=== PATIENT | male | born 1940 | race Caucasian/White ===

== ENCOUNTER 2022-06-19 15:03 | Observation (INO) | payer OTHER, BC ==
--- OUTSIDE RECORDS SUMMARY | 2022-06-19 15:08 | XMS REPORT | Continuity of Care Document ---
:1940 Author Organization [facility] t Address [address] [place] [address] [address]. [address] [place] [address] Care Team Providers Name Role Phone REBEKA CORMIER Primary Care Physician Unavailable EDER PERERA Attending Clinician Unavailable Boris Bustos Attending Clinician MARK KING Attending Clinician Unavailable Nurse, Adc Pob Immunization Attending Clinician Unavailable Mark King DO Attending Clinician Pob, Adc Lab Main Attending Clinician Unavailable Tad Beck MD Attending Clinician TAD BECK Attending Clinician Unavailable Doctor Unassigned, [place] Attending Clinician Unavailable Unknown, Attending Attending Clinician Unavailable Lab, Adc Fam Pob I Attending Clinician Unavailable Dalila Silva MD Attending Clinician DALILA SILVA Attending Clinician Unavailable Radiology Attending Clinician Unavailable RADIOLOGY Attending Clinician Unavailable EDER PERERA Admitting Clinician Unavailable Payers Payer Name Policy Type Policy Number Effective Date Expiration Date S [facility] MEDICARE PART A \T\ [id number] 2007 B 00:00:00 [employer] TRADITIONAL [id number] 2013 00:00:00 Problems Condition Condition Condition Status Onset Resolution Last Treating Co mments Source Name Details Category Date Date Treatment Clinician Date No known No known Disease Unive rs active active ity of problems problems [facility] Diabetes Diabetes Problem Active 2022-05-27 Memoria mellitus mellitus 04:51:21 l (disorder) (disorder) He rmann Active Problem 05/27/2022 [facility] Hyperlipid Hyperlipi Problem Active 2022-05-27 Memoria emia demia 04:51:21 l (disorder) (disorder) He rmann Active Problem 05/27/2022 [facility] Hypertensi Hypertens Problem Active 2022-05-27 Memoria ve kimberly 04:51:21 l disorder, disorder, Herm skyler systemic systemic arterial arterial (disorder) (disorder) Active Problem 05/27/2022 [facility] Hypothyroi Problem Active 2022-05-27 M emoria dism Hypothyroi 04:51:21 l (disorder) dism Adis n (disorder) Active Problem 05/27/2022 [facility] Impaired Impaired Problem Active 2022-05-27 Memoria cognition cognition 04:51:21 l (finding) (finding) Herm skyler Active Problem 05/27/2022 [facility] 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 He rmann n n (disorder) (disorder) Active Problem 05/27/2022 [facility] Dementia Dementia Problem Active 2022-05-27 Memoria (disorder) (disorder) 04:51:21 l Active [place] Problem 05/27/2022 [facility] Allergies, Adverse Reactions, Alerts Allergy Allergy Status Severity Reaction(s) Onset Inactive Treating Comm ents Source Name Type Date Date Clinician NO KNOWN Drug Active Univers ALLERGIE Class [facility] [place] [facility] Social History Social Habit Start Date Stop Date Quantity Comments Source Exposure to Not sure University of SARS-CoV-2 [place] [facility] (event) Branch History [facility] University o f Alcohol Frequency [place] [facility] History [facility] University o f Alcohol Std [place] [facility] Drinks Branch History [facility] University o f Alcohol Binge [place] [facility] Social History 2021-01-13 2021-01-13 Ofe Luis will 21:22:00 21:22:00 Alcohol intake 2018-03-01 2018-03-01 Current drinker Unive rsity of 00:00:00 00:00:00 of alcohol [place] [facility] (finding) Branch Tobacco use and 2018-02-26 2018-02-26 Never used Universit y of exposure 00:00:00 00:00:00 [facility] Alcohol Comment 2018-02-26 2018-02-26 Rare occasions Unive rsity of 00:00:00 00:00:00 [facility] Sex Assigned At [address] 1940 [facility] y of 00:00:00 00:00:00 [facility] Smoking Status Start Date Stop Date Source Unknown if ever smoked [facility] Never smoker [facility] Medications Ordered Filled Start Stop Current Ordering Indication Dosage Frequency Signature Comments Components Source Medication Medication Date Date Medication? 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, Weight Donepezil 0 Yes 10 mg = 1 Mem oria hydrochlori 7-14 tab, PO, l de 10 MG 19:47: Bedtime, # Her grimes Oral Tablet 00 30 tab, 3 [Aricept] Refill(s), Pharmacy: [facility] 256, 180.34, cm, 04/21/21 14:11:00 CDT, Height, 96.364, kg, 04/21/21 14:11:00 CDT, Weight Donepezil 2020-0 Yes 10 mg = 1 Mem oria hydrochlori 7-14 tab, PO, l de 10 MG 19:47: Bedtime, # Her grimes Oral Tablet 00 30 tab, 3 [Aricept] Refill(s), Pharmacy: [facility] 256, 180.34, cm, 04/21/21 14:11:00 CDT, Height, 96.364, kg, 04/21/21 14:11:00 CDT, Weight Donepezil 2020-0 Yes 5 mg = 1 Surjit jayda hydrochlori 5-12 tab, PO, l de 5 MG 20:51: Bedtime, # Herm skyler Oral Tablet 00 30 tab, 3 [Aricept] Refill(s), Pharmacy: [facility] 256, 180.34, cm, 02/17/21 15:20:00 CDT, Height, 95.909, kg, 02/17/21 15:20:00 CDT, Weight Donepezil Yes 5 mg = 1 Surjit jayda hydrochlori 5-12 tab, PO, l de 5 MG 20:51: Bedtime, # Herm skyler Oral Tablet 00 30 tab, 3 [Aricept] Refill(s), Pharmacy: [facility] 256, 180.34, cm, 02/17/21 15:20:00 CDT, Height, 95.909, kg, 02/17/21 15:20:00 CDT, Weight Losartan Yes 50 mg, PO, Mem oria 4-07 Daily, 0 l 20:17: Refill(s) Losartan Yes 50 mg, PO, Mem oria 4-07 Daily, 0 l 20:17: Refill(s) Acetaminoph Yes 30 mg, PO, Memoria en 4-07 PRN, 0 l 20:15: Refill(s) Acetaminoph 0 Yes 30 mg, PO, Memoria en 4-07 PRN, 0 l 20:15: Refill(s) Simvastatin 0 Yes 40 mg, PO, Memoria 4-07 Daily, 0 l 20:14: Refill(s) Metformin 0 Yes 500 mg, Memor ia 4-07 PO, Daily, l 20:14: 0 Refill(s) Clonazepam 0 Yes 5 mg, PO, Me moria 4-07 Bedtime, 0 l 20:14: Refill(s) Simvastatin 0 Yes 40 mg, PO, Memoria 4-07 Daily, 0 l 20:14: Refill(s) Metformin 0 Yes 500 mg, Memor ia 4-07 PO, Daily, l 20:14: 0 Refill(s) Clonazepam 0 Yes 5 mg, PO, Me moria 4-07 Bedtime, 0 l 20:14: Refill(s) [place] 0 Yes 40 mg, PO, Memor ia Thyroid 4-07 Daily, 0 l 20:13: Refill(s) [place] Yes 40 mg, PO, Memor ia Thyroid 4-07 Daily, 0 l 20:13: Refill(s) Bisoprolol Yes 2.5 mg, Surjit jayda 4-07 PO, Daily, l 20:12: 0 R[place] 00 Refill(s) Bisoprolol Yes 2.5 mg, Surjit jayda 4-07 PO, Daily, l 20:12: 0 [place] 00 Refill(s) losartan 50 Yes 50mg Take 50 mg Univers mg tablet 5-23 by mouth ity of 18:14: daily. [address] Branch bisoprolol- Yes 1{tbl} Take 1 Un sharla hydrochloro 5-23 tablet by ity of thiazide 18:14: mouth [place] 2.5-6.25 mg 06 daily. Medica l per tablet Branch metFORMIN Yes 500mg Take 500 Uni vers 500 mg 5-23 mg by ity of tablet 18:14: mouth 2 06 (two) Medical times Branch daily with meals. simvastatin Yes 40mg Take 40 mg Univers 40 mg 5-23 by mouth ity of tablet 18:14: at [place] 06 bedtime. Medical Branch tamsulosin Yes .4mg Take 0.4 Uni vers 0.4 mg 24 5-23 mg by ity of hr capsule 18:14: [facility] Branch daily. Jones-3-DHA Yes 1{capsu Take 1 U nivers -EPA-Fish 5-23 le} capsule by ity of Oil (FISH 18:14: mouth 2 [place] OIL) 1,000 06 (two) Medical mg (120 times Branch mg-180 mg) daily. Cap ascorbic Yes 1000mg Take 1,000 U nivers acid, 5-23 mg by ity of vitamin C, 18:14: mouth [place] (VITAMIN C[place] 06 (two) Medical 500 mg times Branch tablet daily. losartan 50 Yes 50mg Take 50 mg Univers mg tablet 5-23 by mouth ity of 18:14: daily. [address] Branch bisoprolol- Yes 1{tbl} Take 1 Un sharla hydrochloro 5-23 tablet by ity of thiazide 18:14: mouth [place] 2.5-6.25 mg 06 daily. Medica l per tablet Branch metFORMIN 0 Yes 500mg Take 500 Uni vers 500 mg 5-23 mg by ity of tablet 18:14: mouth 2 (two) Medical times Branch daily with meals. simvastatin 2018-0 Yes 40mg Take 40 mg Univers 40 mg 5-23 by mouth ity of tablet 18:14: at [place] [address] bedtime. Medical Branch tamsulosin 2018-0 Yes .4mg Take 0.4 Uni vers 0.4 mg 24 5-23 mg by ity of hr capsule 18:14: mouth [place] 06 (two[place] Medical times Branch daily. Jones-3-DHA Yes 1{capsu Take 1 U nivers -EPA-Fish 5-23 le} capsule by ity of Oil (FISH 18:14: mouth 2 [place] OIL) 1,000 06 (two) Medical mg (120 times Branch mg-180 mg) daily. Cap ascorbic 20180 Yes 1000mg Take 1,000 U nivers acid, 5-23 mg by ity of vitamin C, 18:14: mouth 2 [place] (VITAMIN C) (two) Medical 500 mg times Branch tablet daily. losartan 50 0 Yes 50mg Take 50 mg Univers mg tablet 5-23 by mouth ity of 18:14: daily. Medical Branch bisoprolol- 2017-0 Yes 1{tbl} Take 1 Un sharla hydrochloro 5-23 tablet by ity of thiazide 18:14: mouth [place] 2.5-6.25 mg 06 daily. Medica l per tablet Branch metFORMIN 0 Yes 500mg Take 500 Uni vers 500 mg 5-23 mg by ity of tablet 18:14: mouth 2 (two) Medical times Branch daily with meals. simvastatin 2018-0 Yes 40mg Take 40 mg Univers 40 mg 5-23 by mouth ity of tablet 18:14: at [place] [address] bedtime. Medical Branch tamsulosin 2017-0 Yes .4mg Take 0.4 Uni vers 0.4 mg 24 5-23 mg by ity of hr capsule 18:14: mouth 2 [place] 06 (two) Medical times Branch daily. Jones-3-DHA 2018-0 Yes 1{capsu Take 1 U nivers -EPA-Fish 5-23 le} capsule by ity of Oil (FISH 18:14: mouth 2 [place] OIL) 1,000 06 (two) Medical mg (120 times Branch mg-180 mg) daily. Cap ascorbic Yes 1000mg Take 1,000 U nivers acid, 5-23 mg by ity of vitamin C, 18:14: mouth 2 [place] (VITAMIN C) 06 (two) Medical 500 mg times Branch tablet daily. losartan 50 Yes 50mg Take 50 mg Univers mg tablet 5-23 by mouth ity of 18:14: daily. Medical Branch bisoprolol- Yes 1{tbl} Take 1 Un sharla hydrochloro 5-23 tablet by ity of thiazide 18:14: mouth [place] 2.5-6.25 mg 06 daily. Medica l per tablet Branch metFORMIN Yes 500mg Take 500 Uni vers 500 mg 5-23 mg by ity of tablet 18:14: mouth 2 (two) Medical times Branch daily with meals. simvastatin Yes 40mg Take 40 mg Univers 40 mg 5-23 by mouth ity of tablet 18:14: at [place] [address] bedtime. Medical Branch tamsulosin Yes .4mg Take 0.4 Uni vers 0.4 mg 24 5-23 mg by ity of hr capsule 18:14: mouth 2 [place] 06 (two) Medical times Branch daily. Jones-3-DHA Yes 1{capsu Take 1 U nivers -EPA-Fish 5-23 le} capsule by ity of Oil (FISH 18:14: mouth 2 [place] OIL) 1,000 06 (two) Medical mg (120 times Branch mg-180 mg) daily. Cap ascorbic Yes 1000mg Take 1,000 U nivers acid, 5-23 mg by ity of vitamin C, 18:14: mouth 2 [place] (VITAMIN C) 06 (two) Medical 500 mg times Branch tablet daily. losartan 50 0 Yes 50mg Take 50 mg Univers mg tablet 5-23 by mouth ity of 18:14: daily. Medical Branch bisoprolol- Yes 1{tbl} Take 1 Un sharla hydrochloro 5-23 tablet by ity of thiazide 18:14: mouth [place] 2.5-6.25 mg 06 daily. Medica l per tablet Branch metFORMIN 2018-0 Yes 500mg Take 500 Uni vers 500 mg 5-23 mg by ity of tablet 18:14: mouth 2 (two) Medical times Branch daily with meals. simvastatin 2018-0 Yes 40mg Take 40 mg Univers 40 mg 5-23 by mouth ity of tablet 18:14: at [place] [address] bedtime. Medical Branch tamsulosin 2018-0 Yes .4mg Take 0.4 Uni vers 0.4 mg 24 5-23 mg by ity of hr capsule 18:14: mouth 2 [place] 06 (two) Medical times Branch daily. Jones-3-DHA 2018- Yes 1{capsu Take 1 U nivers -EPA-Fish 5-23 le} capsule by ity of Oil (FISH 18:14: mouth 2 [place] OIL) 1,000 06 (two) Medical mg (120 times Branch mg-180 mg) daily. Cap ascorbic 2018-0 Yes 1000mg Take 1,000 U nivers acid, 5-23 mg by ity of vitamin C, 18:14: mouth 2 [place] (VITAMIN C) (two) Medical 500 mg times Branch tablet daily. losartan 50 2018-0 Yes 50mg Take 50 mg Univers mg tablet 5-23 by mouth ity of 18:14: daily. Medical Branch bisoprolol- 2018-0 Yes 1{tbl} Take 1 Un sharla hydrochloro 5-23 tablet by ity of thiazide 18:14: mouth [place] 2.5-6.25 mg 06 daily. Medica l per tablet Branch metFORMIN 2018-0 Yes 500mg Take 500 Uni vers 500 mg 5-23 mg by ity of tablet 18:14: mouth 2 (two) Medical times Branch daily with meals. simvastatin 2018-0 Yes 40mg Take 40 mg Univers 40 mg 5-23 by mouth ity of tablet 18:14: at [place] [address] bedtime. Medical Branch tamsulosin 2018-0 Yes .4mg Take 0.4 Uni vers 0.4 mg 24 5-23 mg by ity of hr capsule 18:14: mouth 2 [place] 06 (two) Medical times Branch daily. Jones-3-DHA 2018-0 Yes 1{capsu Take 1 U nivers -EPA-Fish 5-23 le} capsule by ity of Oil (FISH 18:14: mouth 2 [place] OIL) 1,000 06 (two) Medical mg (120 times Branch mg-180 mg) daily. Cap ascorbic 2017-0 Yes 1000mg Take 1,000 U nivers acid, 5-23 mg by ity of vitamin C, 18:14: mouth 2 [place] (VITAMIN C) 06 (two) Medical 500 mg times Branch tablet daily. losartan 50 2017- Yes 50mg Take 50 mg Univers mg tablet 5-23 by mouth ity of 13:14: daily. [place] 06 Medical Branch bisoprolol- 2018-0 Yes 1{tbl} Take 1 Un sharla hydrochloro 5-23 tablet by ity of thiazide 13:14: mouth [place] 2.5-6.25 mg 06 daily. Medica l per tablet Branch metFORMIN 2017-0 Yes 500mg Take 500 Uni vers 500 mg 5-23 mg by ity of tablet 13:14: mouth 2 [place] 06 (two) Medical times Branch daily with meals. simvastatin 2017- Yes 40mg Take 40 mg Univers 40 mg 5-23 by mouth ity of tablet 13:14: at [place] 06 bedtime. Medical Branch tamsulosin 2018-0 Yes .4mg Take 0.4 Uni vers 0.4 mg 24 5-23 mg by ity of hr capsule 13:14: mouth 2 [place] 06 (two) Medical times Branch daily. Jones-3-DHA 2017- Yes 1{capsu Take 1 U nivers -EPA-Fish 5-23 le} capsule by ity of Oil (FISH 13:14: mouth 2 [place] OIL) 1,000 06 (two) Medical mg (120 times Branch mg-180 mg) daily. Cap ascorbic Yes 1000mg Take 1,000 U nivers acid, 5-23 mg by ity of vitamin C, 13:14: mouth 2 [place] (VITAMIN C) 06 (two) Medical 500 mg times Branch tablet daily. Immunizations Ordered Filled Immunization Date Status Comments [facility] e Immunization Name Name SARS-COV-2 COVID-19 2021-07-13 Completed Unive rsity of PFIZER VACCINE 00:00:00 [facility] SARS-COV-2 COVID-19 2020-12-21 Completed Unive rsity of PFIZER VACCINE 00:00:00 [facility] SARS-COV-2 COVID-19 2020-12-21 Completed Unive rsity of PFIZER VACCINE 00:00:[address] [facility] Branch SARS-COV-2 COVID-19 2020-12-21 Completed Unive rsity of PFIZER VACCINE 00:00:00 [place] [facility] Branch SARS-COV-2 COVID-19 2020-12-21 Completed Unive rsity of PFIZER VACCINE 00:00:[address] [facility] Branch SARS-COV-2 COVID-19 2020-12-21 Completed Unive rsity of PFIZER VACCINE 00:00:[address] [facility] Branch SARS-COV-2 COVID-19 2020-12-21 Completed Unive rsity of PFIZER VACCINE 00:00:[address] [facility] Branch SARS-COV-2 COVID-19 2020-12-21 Completed Unive rsity of PFIZER VACCINE 00:00:[address] [facility] Branch [id number] 2020-12-21 Completed Memor bk Lawson [id number] 00:00:00 ER<sup>1</sup> [id number] 2020-12-21 Completed Memor bk [id number] 00:00:00 ER<sup>1</sup> SARS-COV-2 COVID-19 2020-12-21 Completed Unive rsity of PFIZER VACCINE 00:00:[address] [facility] Branch SARS-COV-2 COVID-19 2020-11-30 Completed Unive rsity of PFIZER VACCINE 00:00:[address] [facility] Branch SARS-COV-2 COVID-19 2020-11-30 Completed Unive rsity of PFIZER VACCINE 00:00:[address] [facility] Branch SARS-COV-2 COVID-19 2020-11-30 Completed Unive rsity of PFIZER VACCINE 00:00:[address] [facility] Branch SARS-COV-2 COVID-19 2020-11-30 Completed Unive rsity of PFIZER VACCINE 00:00:[address] [facility] Branch SARS-COV-2 COVID-19 2020-11-30 Completed Unive rsity of PFIZER VACCINE 00:00:00 [facility] SARS-COV-2 COVID-19 2020-11-30 Completed Unive rsity of PFIZER VACCINE 00:00:00 [facility] SARS-COV-2 COVID-19 2020-11-30 Completed Unive rsity of PFIZER VACCINE 00:00:00 [facility] SARS-COV-2 COVID-19 2020-11-30 Completed Unive rsity of PFIZER VACCINE 00:00:00 [facility] Vital Signs Vital Name Observation Time Observation Value Comments Source Systolic (mm Hg) 2022-05-24 18:19:00 Surjit rial [place] Diastolic (mm Hg) 2022-05-24 18:19:00 Mem orial [place] Heart Rate 2022-05-24 18:19:00 [facility] [place] Respitory Rate 2022-05-24 18:19:00 Memori al [place] Height 2022-05-24 18:19:00 177.8 cm [facility] [place] Weight 2022-05-24 18:19:00 Memorial [place] BMI Calculated 2022-05-24 18:19:00 Memori al [place] Systolic (mm Hg) 2021-11-23 19:57:00 Surjit rial [place] Diastolic (mm Hg) 2021-11-23 19:57:00 Mem orial [place] Heart Rate 2021-11-23 19:57:00 [facility] [place] Respitory Rate 2021-11-23 19:57:00 Memori al [place] Height 2021-11-23 19:57:00 177.8 cm [facility] [place] Weight 2021-11-23 19:57:00 [facility] [place] BMI Calculated 2021-11-23 19:57:00 Memori al [place] Systolic (mm Hg) 2021-07-22 16:30:00 Surjit rial [place] Diastolic (mm Hg) 2021-07-22 16:30:00 Mem orial [place] Heart Rate 2021-07-22 16:30:00 [facility] [place] Height 2021-07-22 16:30:00 180.34 cm Memorial [place] Weight 2021-07-22 16:30:00 [facility] [place] BMI Calculated 2021-07-22 16:30:00 Memori al [place] Systolic (mm Hg) 2021-04-21 19:11:00 Surjit rial [place] Diastolic (mm Hg) 2021-04-21 19:11:00 Mem orial [place] Heart Rate 2021-04-21 19:11:00 [facility] [place] Respitory Rate 2021-04-21 19:11:00 Memori al [place] Height 2021-04-21 19:11:00 180.34 cm [facility] [place] Weight 2021-04-21 19:11:00 [facility] [place] BMI Calculated 2021-04-21 19:11:00 Memori al [place] Systolic (mm Hg) 2021-02-17 20:02:00 Surjit rial [place] Diastolic (mm Hg) 2021-02-17 20:02:00 Mem orial [place] Heart Rate 2021-02-17 20:02:00 [facility] [place] Respitory Rate 2021-02-17 20:02:00 Memori al [place] Height 2021-02-17 20:02:00 180.34 cm Memorial [place] Weight 2021-02-17 20:02:00 [facility] [place] BMI Calculated 2021-02-17 20:02:00 Memori al [place] Systolic (mm Hg) 2021-01-13 20:11:00 Surjit rial [place] Diastolic (mm Hg) 2021-01-13 20:11:00 Mem orial [place] Heart Rate 2021-01-13 20:11:00 Memorial [place] Respitory Rate 2021-01-13 20:11:00 Memori al [place] Height 2021-01-13 20:11:00 180.34 cm [facility] [place] Weight 2021-01-13 20:11:00 [facility] [place] BMI Calculated 2021-01-13 20:11:00 Memori al [place] Procedures Procedure Date / Time Performing Clinician Source Performed SARS-COV-2 COVID-19 2021-07-13 19:55:15 [facility],IM [facility] Branch (PFIZER) CONSENT/REFUSAL FOR 2021-06-03 21:08:38 Doctor Unassigned, [facility] Medical [address] ASSIGNMENT OF BENEFITS 2021-06-03 21:08:19 Doctor Unassigned, No [facility] MR BRAIN WO CONTRAST 2021-01-26 20:45:51 Requisition, Paper [facility] NOTICE OF PRIVACY 2021-01-26 19:45:15 Doctor Unassigned, No [facility] CONSENT/REFUSAL FOR 2021-01-26 19:44:40 Doctor Unassigned, No [facility] DIAGNOSIS AND TREATMENT Name Medical [address] ASSIGNMENT OF BENEFITS 2021-01-26 19:44:11 Doctor Unassigned, No [facility] Name [facility] Colonoscopy [facility] Encounters Start End Encounter Admission Attending Care Care Encounter Source Date/Time Date/Time Type Type Clinicians Facility Department ID 2021-09-29 Outpatient Reji PERERA [facility] OPH [id number] Univers 17:21:34 EDER [facility] 2022-11-24 2022-11-24 Outpatient MHIE MHIE [id number] Memoria 13:00:00 13:00:00 06 l [place] 2022-05-24 2022-05-25 Outpatient nullFlavo MNA [id number] Memoria 18:00:00 04:59:59 r Neurology 05 l [place] 2022-05-24 2022-05-24 Outpatient Juli MHMISCHER MHMISCHER [id number] 13:00:00 23:59:59 Boris 05 Fidel 2022-05-24 2022-05-24 Outpatient MHIE MHIE [id number] Memoria 13:00:00 13:00:00 05 l [place] 2021-11-23 2021-11-24 Outpatient nullFlavo MNA [id number] Memoria 19:45:00 05:59:59 r Neurology 04 l [place] 2021-11-23 2021-11-23 Outpatient FARTUN BustosMISCHER MHMISCHER [id number] 13:45:00 23:59:59 Boris 04 Fidel 2021-11-23 2021-11-23 Outpatient MHIE MHIE [id number] Memoria 13:45:00 13:45:00 04 l [place] 2021-10-12 2021-10-12 Outpatient R [facility] [id number] Univers 09:15:00 09:15:00 [id number] [facility] 2021-10-12 2021-10-12 Outpatient Reji PERERA [facility] [id number] Univers 09:15:00 09:15:00 EDER [facility] 2021-10-04 2021-10-04 Outpatient R [facility] [id number] Univers 15:45:00 15:45:00 [id number] [facility] 2021-10-04 2021-10-04 Outpatient Reji PERERA [facility] [id number] Univers 15:45:00 15:45:00 EDER [facility] 2021-07-22 2021-07-23 Outpatient nullFlavo MNA [id number] Memoria 16:30:00 04:59:59 r Neurology 03 l [place] 2021-07-22 2021-07-22 Outpatient Juli MHMISCHER MHMISCHER [id number] 11:30:00 23:59:59 Boris 03 Fidel 2021-07-22 2021-07-22 [id number] 11:30:00 03 raghav Lawson 2021-07-22 2021-07-22 Outpatient MHIE MHIE [id number] [facility] 11:30:00 11:30:00 03 raghav Lwason 2021-07-13 2021-07-13 Outpatient Reji KING [facility] [id number] Univers 14:50:00 14:50:00 MARK [facility] 2021-07-13 2021-07-13 Imm/Inj Nurse, Adc Pob Immunization [facility] [id number] Univers 14:43:59 14:44:59 Visit Mark King [id number] .10 ity [facility] [id number] Profess[place] [phone] Mn dical nal 421 [facility] 2021-06-03 2021-06-03 Pasting Inspector Pob, Adc Lab Main [facility] [id number] Univers 16:08:50 16:23:50 Visit Tad Beck [id number] [place] [id number] [place] [phone] Mn dical nal 353 [facility] 2021-06-03 2021-06-03 Outpatient Reji BECK [facility] [id number] Univers 16:15:00 16:15:00 TAD [facility] 2021-06-03 2021-06-03 Outpatient R [facility] [id number] Univers 16:15:00 16:15:00 [id number] ity [facility] 2021-06-03 2021-06-03 Orders Doctor CL [id number] Univers 00:00:00 00:00:00 Only Unassigned, JENNY [id number] ity of [place] [facility] [id number] Gamaliel as [phone] [address] 2021-05-06 2021-05-06 Telephone Unknown, [facility] [id number] Univers 00:00:00 00:00:00 Attending Health [id number] ity of [place] [id number] Gamaliel as Professio [phone] Mn dic[address] Office [facility] One 2021-05-05 2021-05-05 Laboratory Lab, Adc Fam Pob I [facility] [id number]. [id number] Univers 13:38:03 13:58:03 Only Dalila Silva [facility] [id number] ity of [place] [id number] Gamaliel as Professio [phone] Mn dical [address] Office [facility] 2021-05-05 2021-05-05 Outpatient R [facility] [id number] Univers 13:40:00 13:40:00 [id number] ity [facility] 2021-05-05 2021-05-05 Outpatient [facility] [id number] Univers 13:40:00 13:40:00 DALILA ity [facility] 2021-04-21 2021-04-22 Outpatient nullFlavo MNA [id number] Memoria 19:00:00 04:59:59 r Neurology 02 l Charis Lawson 2021-04-21 2021-04-22 Outpatient nullFlavo MNA [id number] Memoria 19:00:00 04:59:59 r Neurology 02 l Charis Lawson 2021-04-21 2021-04-[address] [facility] [id number] 14:00:00 23:59:59 Boris 02 Fidel 2021-04-21 2021-04-21 Outpatient MHIE MHIE [id number] Memoria 14:00:00 14:00:00 02 raghav Lawson 2021-02-17 2021-02-18 Outpatient nullFlavo MNA [id number] Memoria 19:30:00 04:59:59 r Neurology 01 l Charis Solisann 2021-02-17 2021-02-18 Outpatient nullFlavo MNA [id number] Memoria 19:30:00 04:59:59 r Neurology 01 l Charis Lawson 2021-02-17 2021-02-17 Outpatient TERESITA Bustos MISCHRONNY [id number] 14:30:00 23:59:59 Boris Fidel 2021-02-17 2021-02-17 Outpatient MHIE MHIE [id number] Memoria 14:30:00 14:30:00 01 raghav [place] 2021-01-26 2021-01-26 [facility] Radiology [facility] [id number] Univers 14:44:16 23:59:00 Encounter [place] [id number] ity [facility] [id number] [facility] [id number] [facility] [address] 2021-01-26 2021-01-26 Outpatient R RADIOLOGY [facility] [id number] Univers 00:00:00 00:00:00 ity of [facility] 2021-01-13 2021-01-14 Outpatient nullFlavo MNA [id number] Memoria 20:00:00 04:59:59 r Neurology 00 l Charis Lawson 2021-01-13 2021-01-14 Outpatient nullFlavo MNA [id number] Memoria 20:00:00 04:59:59 r Neurology 00 l Charis Lawson 2021-01-13 2021-01-13 Outpatient TERESITA BustosMISCHER [id number] 15:00:00 23:59:59 Boris 00 Fidel Results Test Description Test Time Test Comments Results Result Sourc e Comments MR BRAIN WO 2021-01-08 No acute [facility] CONTRAST 0 intracranial [place] [facility] 21:22:38 abnormality. EXAM: Branch MR BRAIN WO CONTRAST HISTORY: Mild cognitive impairment TECHNIQUE: MRI of brain was performed on 1.5 Marcela without intravenouscontrast . COMPARISON: None. FINDINGS: The ventricles and sulci are normal in caliber and configuration. Nohydrocephalus. The basal cisterns are within normal limits. There is no diffusion restriction suggest acute/subacute infarction. Nointracranial hemorrhage, extra-axial collection, mass effect, midlineshift, or herniation. No abnormal signal Blooming on gradient sequences. Prominent bilateral basal ganglia perivascular spaces. Few scattered fociof T2/FLAIR hyperintensity are noted in the bilateral cerebral hemispheres,nonspec ific probably age-related. The T2 signal void of intracranial vessels is within normal limits. No abnormal signal in the paranasal sinuses or mastoid air cells. [facility], Radiant Results Inft User - 01/26/2021 4:23 PM CDTEXAM: MR BRAIN WO CONTRASTHISTORY: Mild cognitive impairmentTECHNIQUE : MRI of brain was performed on 1.5 Marcela without intravenouscontrast .COMPARISON: None.FINDINGS: The ventricles and sulci are normal in caliber and configuration. Nohydrocephalus. The basal cisterns are within normal limits.There is no diffusion restriction suggest acute/subacute infarction. Nointracranial hemorrhage, extra-axial collection, mass effect, midlineshift, or herniation. No abnormal signal Blooming on gradient sequences.Prominent bilateral basal ganglia perivascular spaces. Few scattered fociof T2/FLAIR hyperintensity are noted in the bilateral cerebral hemispheres,nonspec ific probably age-related.The T2 signal void of intracranial vessels is within normal limits. No abnormal signal in the paranasal sinuses or mastoid air cells.IMPRESSIONNo acute intracranial abnormality.
--- NOTE | 2022-06-19 16:13 | RAD REPORT ---
EXAM DESCRIPTION: CT - Head Brain Wo Cont - 06/19/2022 4:01 pm CLINICAL HISTORY: sadf Headache, drowsiness, syncope COMPARISON: No comparisons TECHNIQUE: All CT scans are performed using dose optimization technique as appropriate and may inclu de automated exposure control or mA/KV adjustment according to patient size. FINDINGS: No intracranial hemorrhage, hydrocephalus or extra-axial fluid collection.No areas of brai n edema or evidence of midline shift. The paranasal sinuses and mastoids are clear. The calvarium is intact. IMPRESSION: No acute intracranial abnormality.
[2022-06-19 16:17] LABS: Hematocrit 36.1 % (39.6-49.0); Lymphocytes % 14.5 % (15.3-44.8); MCV 88.2 fL (80-100); MPV 8.6 fL (7.6-11.3); RBC Red Blood Cell Count 4.09 M/uL (4.33-5.43)
[2022-06-19 16:46] LABS: Potassium 4.1 mmol/L (3.5-5.1); Troponin High Sensitivity 10.9 pg/mL (<58.9)
[2022-06-19 17:17] LABS: Specific Gravity 1.015 (1.005-1.030); Urine Bilirubin NEGATIVE (Negative); Urine Blood Negative (Negative); Urine Clarity Clear (Clear); Urine Color Light-Yellow (Yellow); Urine Glucose NEGATIVE (Negative); Urine Protein NEGATIVE (Negative); Urine Urobilinogen Normal (Normal)
--- NOTE | 2022-06-19 17:19 | RAD REPORT ---
EXAM DESCRIPTION: RAD - Chest Single View - 06/19/2022 5:08 pm CLINICAL HISTORY: MALAISE Chest pain. COMPARISON: No comparisons FINDINGS: Portable technique limits examination quality. The lungs are mildly emphysematous but grossly clear. The heart is normal in size. No displaced fract ures.Trace left pleural effusion. IMPRESSION: No acute intrathoracic process suspected.
--- NOTE | 2022-06-19 17:48 | EDPHYS ---
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 . 15:20 Onset: The symptoms/episode began/occurred just prior to arrival. Severity of symptoms: jl9 Pain is currently a 0 / 10. The patient has not experienced similar symptoms in the past. Historical: - Allergies: 15:15 No Known Allergies; ll1 - PMHx: 15:15 Hypertensive disorder; ll1 - Immunization history:: Client reports receiving the 2nd dose of the Covid vaccine. - Social history:: Smoking status: Patient denies any tobacco usage or history of. ROS: 17:45 Constitutional: Negative for fever, chills, and weight loss, Eyes: Negative for injury, jl9 pain, redness, and discharge, ENT: Negative for injury, pain, and discharge, Neck: Negative for injury, pain, and swelling, Cardiovascular: Negative for chest pain, palpitations, and edema, Respiratory: Negative for shortness of breath, cough, wheezing, and pleuritic chest pain, Abdomen/GI: Negative for abdominal pain, nausea, vomiting, diarrhea, and constipation, Back: Negative for injury and pain, : Negative for injury, bleeding, discharge, and swelling, MS/Extremity: Negative for injury and deformity, Skin: Negative for injury, rash, and discoloration. 17:45 Psych: Negative for depression, anxiety, suicide ideation, homicidal ideation, and hallucinations, Allergy/Immunology: Negative for hives, rash, and allergies, Endocrine: Negative for neck swelling, polydipsia, polyuria, polyphagia, and marked weight changes, Hematologic/Lymphatic: Negative for swollen nodes, abnormal bleeding, and unusual bruising. 17:45 Neuro: Positive for syncope. Exam: 17:46 Constitutional: This is a well developed, well nourished patient who is awake, alert, jl9 and in no acute distress. Head/Face: Normocephalic, atraumatic. Eyes: Pupils equal round and reactive to light, extra-ocular motions intact. Lids and lashes normal. Conjunctiva and sclera are non-icteric and not injected. Cornea within normal limits. Periorbital areas with no swelling, redness, or edema. ENT: Mucous membranes moist. Neck: Trachea midline, no thyromegaly or masses palpated, and no cervical lymphadenopathy. Supple, full range of motion without nuchal rigidity, or vertebral point tenderness. No Meningismus. Chest/axilla: Normal chest wall appearance and motion. Nontender with no deformity. No lesions are appreciated. Cardiovascular: Regular rate and rhythm with a normal S1 and S2. No gallops, murmurs, or rubs. Normal PMI, no JVD. No pulse deficits. Respiratory: Lungs have equal breath sounds bilaterally, clear to auscultation and percussion. No rales, rhonchi or wheezes noted. No increased work of breathing, no retractions or nasal flaring. Abdomen/GI: Soft, non-tender, with normal bowel sounds. No distension or tympany. No guarding or rebound. No evidence of tenderness throughout. Back: No spinal tenderness. No costovertebral tenderness. Full range of motion. Skin: Warm, dry with normal turgor. Normal color with no rashes, no lesions, and no evidence of cellulitis. MS/ Extremity: Pulses equal, no cyanosis. Neurovascular intact. Full, normal range of motion. 17:46 Neuro: Awake and alert, GCS 15, oriented to person, place, time, and situation. Cranial nerves II-XII grossly intact. Motor strength 5/5 in all extremities. Sensory grossly intact. Cerebellar exam normal. Normal gait. Psych: Awake, alert, with orientation to person, place and time. Behavior, mood, and affect are within normal limits. Vital Signs: 15:13 BP 118 / 56; Pulse 60; Resp 17; Temp 97.4; Pulse Ox 99% ; Pain 0/10; ll1 16:05 BP 123 / 64; Pulse 56; Pulse Ox 100% ; kr3 17:05 BP 137 / 61; Pulse 52; Resp 15; Pulse Ox 99% on R/A; kr3 18:05 BP 134 / 80; Pulse 49; Resp 16; Pulse Ox 99% on R/A; kr3 19:42 BP 142 / 103; Pulse 46; Pulse Ox 100% on R/A; as6 20:17 BP 139 / 84; Pulse 45; Resp 17 S; Pulse Ox 100% on R/A; as6 MDM: 15:10 Test interpretation: by ED physician or midlevel provider: ECG, SB. 15:37 Patient medically screened. 17:46 Data reviewed: vital signs, nurses notes. Counseling: I had a detailed discussion with [facility] the patient and/or guardian regarding: the historical points, exam findings, and any diagnostic results supporting the discharge/admit diagnosis, lab results, radiology results, the need for further work-up and treatment in the hospital. Physician consultation: Hospitalist ORE CRUSHER to see. . 19:07 Physician consultation: Report given to PAULETTE Mas and she will see patient. . [facility] 06/19 15:38 Order name: Basic Metabolic Panel; Complete Time: 16:56 [facility] 06/19 15:38 Order name: CBC with Diff; Complete Time: 16:29 [facility] 06/19 15:38 Order name: Troponin HS; Complete Time: 16:56 [facility] 06/19 15:38 Order name: XRAY Chest (1 view); Complete Time: 17:20 [facility] 06/19 15:38 Order name: Urinalysis; Complete Time: 21:11 [facility] 06/19 17:37 Order name: SARS RAPID; Complete Time: 20:15 [facility] 06/19 15:31 Order name: EKG; Complete Time: 15:32 [facility] 06/19 15:31 Order name: EKG - Nurse/Tech; Complete Time: 15:31 [facility] 06/19 15:38 Order name: Cardiac monitoring; Complete Time: 15:39 [facility] 06/19 15:38 Order name: IV Saline Lock; Complete Time: 15:39 [facility] 06/19 15:38 Order name: Labs collected and sent; Complete Time: 15:39 [facility] 06/19 15:38 Order name: CT Head Brain wo Cont [facility] 06/19 15:42 Order name: Head Brain Wo Cont; Complete Time: 16:29 [facility] 06/19 15:38 Order name: O2 Per Protocol; Complete Time: 15:39 [facility] 06/19 15:38 Order name: O2 Sat Monitoring; Complete Time: 15:39 [facility] Administered Medications: 15:39 Drug: NS 0.9% 1000 ml {Note: given en route.} Route: IV; Rate: 1000 ml; Site: left kr3 antecubital; 15:43 Follow up: Response: No adverse reaction; IV Status: Completed infusion; IV Intake: kr3 1000ml Disposition Summary: 06/19/22 17:48 Hospitalization Ordered Hospitalization Status: Observation jl9 Provider: Osmani Luciano jl9 Location: Telemetry/MedSurg (observation) jl9 Condition: Fair jl9 Problem: new jl9 Symptoms: have improved jl9 Bed/Room Type: Standard 9 Room Assignment: 429(06/19/22 20:07) mw Diagnosis - Syncope Near jl9 - Bradycardia, unspecified jl9 Forms: - Medication Reconciliation Form jl9 - SBAR form jl9 Signatures: Dispatcher [employer] EDMS Jyoti Gamboa RN RN Merrill Waddell RN RN ll1 Pattie Clement PA PA sb3 Luis Eduardo Olson jl9 Latonia Gale RN RN kr3 Corrections: (The following items were deleted from the chart) 20:06 17:48 jl9 mw 20:07 20:06 430 mw mw
--- NOTE | 2022-06-19 17:48 | ER ---
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 Became weak, dizzy. No fever or cough. Coronavirus screen: Vaccine status: Patient reports receiving the 2nd dose of the covid vaccine. Client denies travel out of the [place] in the last 14 days. At this time, the client does not indicate any symptoms associated with coronavirus-19. Ebola Screen: Patient denies travel to an Ebola-affected area in the 21 days before illness onset. Initial Sepsis Screen: Does the patient meet any 2 criteria? No. Patient's initial sepsis screen is negative. Does the patient have a suspected source of infection? No. Patient's initial sepsis screen is negative. Risk Assessment: Do you want to hurt yourself or someone else? Patient reports no desire to harm self or others. Onset of symptoms was June 19, 2022. 15:13 Method Of Arrival: EMS ll1 15:13 Acuity: PREETHI 3 ll1 15:15 Chief complaint: EMS states: Fingerstick 170. Bradycardia at 44 BPM, atropine .5 IV ll1 given x 2. HR 52-56 afterwards. 18 G L AC, 1000 ml bolus given. Triage Assessment: 15:16 General: Appears ill, Behavior is cooperative, appropriate for age. Pain: Denies pain. ll1 Neuro: Reports dizziness, a syncopal episode weakness. Historical: - Allergies: 15:15 No Known Allergies; ll1 - PMHx: 15:15 Hypertensive disorder; ll1 - Immunization history:: Client reports receiving the 2nd dose of the Covid vaccine. - Social history:: Smoking status: Patient denies any tobacco usage or history of. Screenin:43 Abuse screen: Denies threats or abuse. Denies injuries from another. Nutritional as6 screening: No deficits noted. Tuberculosis screening: No symptoms or risk factors identified. 20:18 Fall Risk None identified. as6 Assessment: 16:17 Reassessment: wet clothes removed. Gown and dry underwear applied. Tolerated well. ll1 Given more warm blankets. 17:07 Reassessment: No changes from previously documented assessment. Patient and/or family kr3 updated on plan of care and expected duration. Pain level reassessed. 18:57 Reassessment: No changes from previously documented assessment. Patient and/or family kr3 updated on plan of care and expected duration. Pain level reassessed. Vital Signs: 15:13 BP 118 / 56; Pulse 60; Resp 17; Temp 97.4; Pulse Ox 99% ; Pain 0/10; ll1 16:05 BP 123 / 64; Pulse 56; Pulse Ox 100% ; kr3 17:05 BP 137 / 61; Pulse 52; Resp 15; Pulse Ox 99% on R/A; kr3 18:05 BP 134 / 80; Pulse 49; Resp 16; Pulse Ox 99% on R/A; kr3 19:42 BP 142 / 103; Pulse 46; Pulse Ox 100% on R/A; as6 20:17 BP 139 / 84; Pulse 45; Resp 17 S; Pulse Ox 100% on R/A; as6 ED Course: 15:10 Patient arrived in ED. eb 15:13 Arm band placed on Patient placed in an exam room, on a stretcher. ll1 15:15 Triage completed. ll1 15:37 Luis Eduardo Olson is PHCP. jl9 15:37 Jagjit Dwyer MD is Attending Physician. jl9 15:37 Latonia Gale, ITALIA is Primary Nurse. kr3 15:51 Basic Metabolic Panel Sent. kc6 15:51 CBC with Diff Sent. kc6 15:51 Troponin HS Sent. kc6 16:02 Head Brain Wo Cont In Process Unspecified. EDMS 17:10 XRAY Chest (1 view) In Process Unspecified. EDMS 17:47 Osmani Luciano is Hospitalizing Provider. jl9 19:21 SARS RAPID Sent. aa9 20:15 No provider procedures requiring assistance completed. Patient admitted, IV remains in as6 place. 20:18 Placed in gown. Bed in low position. Call light in reach. Side rails up X2. Client as6 placed on continuous cardiac and pulse oximetry monitoring. NIBP monitoring applied. Administered Medications: 15:39 Drug: NS 0.9% 1000 ml {Note: given en route.} Route: IV; Rate: 1000 ml; Site: left kr3 antecubital; 15:43 Follow up: Response: No adverse reaction; IV Status: Completed infusion; IV Intake: kr3 1000ml Medication: 20:18 VIS not applicable for this client. as6 Intake: 15:43 IV: 1000ml; Total: 1000ml. kr3 Outcome: 17:48 Decision to Hospitalize by Provider. jl9 20:18 Admitted to Tele accompanied by tech, via wheelchair, room 429. as6 20:18 Condition: stable 20:18 Instructed on the need for admit. 21:41 Patient left the ED. as6 Signatures: Dispatcher [employer] EDMS Dawn Rogers Lynsay, RN RN ll1 Kameron Blanco RN RN as6 Luis Eduardo Olson9 Ashley Kelley RN RN aa9 Latonia Gale RN RN [place]3 Shira Mahoney kc6
[2022-06-19 19:55] LABS: SARS-CoV-2 Antigen Rapid Res Negative (Negative)
--- NOTE | 2022-06-19 20:11 | P.HP ---
Certification for Inpatient Patient admitted to: Observation With expected LOS: <2 Midnights Patient will require the following post-hospital care: None Practitioner: I am a practitioner with admitting privileges, knowledge of patient current condition, hospital course, and medical plan of care. Services: Services provided to patient in accordance with Admission requirements found in Title 42 Section 412.3 of the Code of Federal Regulations Patient History Date of Service: 06/19/22 Reason for admission: Near Syncope, Bradycardia History of Present Illness: Patient is a 81-year-old male with history of hypertension and hyperlipidemia who presented to the ED via EMS after a near syncopal episode. 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 Upon EMS arrival, he was noted to be diaphoretic and bradycardic. They administered 0.5 of atropine and 1 L of fluid. EKG showed sinus bradycardia with a rate of 45. He states that he takes bisoprolol 6.25 daily but is unsure what his heart rate usually is. He does not think it is typically this low. He sees Dr. Ramirez. His labs and head CT were unremarkable. Patient remains bradycardic. He states that he is feeling better but overall still very weak. ED provider wishes to admit patient for observation. Home medications list reviewed: Yes - Past Medical/Surgical History Diabetic: No -: Hypertension Past Surgical History: Patient denies surgical history Psychosocial/ Personal History: Patient works as a preacher. - Family History Mother -: Cancer - Social History Smoking Status: Former smoker Alcohol use: No CD- Drugs: No Caffeine use: Yes Place of Residence: Home Review of Systems General: Sweats, As per HPI Physical Examination - Physical Exam General: Alert, In no apparent distress HEENT: Atraumatic, PERRLA, EOMI, Sclerae nonicteric Neck: Supple, 2+ carotid pulse no bruit, No LAD, Without JVD or thyroid abnormality Respiratory: Clear to auscultation bilaterally, Normal air movement Cardiovascular: Regular rate/rhythm, Normal S1 S2 Gastrointestinal: Normal bowel sounds, No tenderness Musculoskeletal: No tenderness Integumentary: No rashes Neurological: Normal speech, Normal strength at 5/5 x4 extr, Normal tone, Normal affect - Studies Laboratory Data (last 24 hrs) 06/19/22 15:48: WBC 7.00, Hgb 12.1 L, Hct 36.1 L, Plt Count 173 06/19/22 15:48: Sodium 141, Potassium 4.1, BUN 16, Creatinine 0.81, Glucose 155 H Assessment and Plan - Problems (Diagnosis) (1) Near syncope Current Visit: Yes Status: Acute (2) Sinus bradycardia Current Visit: Yes Status: Acute (3) Hypertension Current Visit: Yes Status: Chronic Qualifiers: Hypertension type: primary hypertension Qualified Code(s): I10 - Essential (primary) hypertension - Plan -Monitor patient on telemetry overnight -Cardiology consult. Echo ordered -HOLD beta blockers -Lipid and thyroid panel -IV hydration -Monitor and replete electrolytes per protocol -Reconcile and continue home medications -Lovenox for VTE ppx -Full code Discharge Plan: Home Plan to discharge in: 24 Hours - Advance Directives Does patient have a Living Will: No Does patient have a Durable POA for Healthcare: No - Code Status/Comfort Care Code Status Assessed: Yes (Full) Critical Care: No Time Spent Managing Pts Care (In Minutes): 50
[2022-06-19] MEDS ORDERED: ONDANSETRON 4 MG/2 ML VIAL IV PRN (20:47)
[2022-06-19] MEDS ORDERED: ACETAMINOPHEN 500 MG TAB PO PRN (20:47)
[2022-06-19] MEDS: NA CHLORIDE 0.9% 1,000 ML IV SCH (22:42)
[2022-06-19 23:25] VITALS: BMI 27.1
[2022-06-20 03:44] LABS: Hematocrit 34.2 % (39.6-49.0); MPV 8.1 fL (7.6-11.3); RBC Red Blood Cell Count 3.93 M/uL (4.33-5.43)
[2022-06-20 03:45] LABS: Absolute Lymphocytes (CBC) 2.2 K/uL (0.7-4.9); Lymphocytes % 28.9 % (15.3-44.8)
[2022-06-20 04:10] LABS: Magnesium 2.1 mg/dL (1.8-2.4); Phosphorus 3.2 mg/dL (2.5-4.9); Potassium 4.3 mmol/L (3.5-5.1); Thyroid Stimulating Hormone 0.025 uIU/mL (0.360-3.740)
--- NOTE | 2022-06-20 05:38 | EKG ---
Test Date: 2022-06-19 Test Time: 15:17:16 Cash Application Clerk: JACI MEASUREMENT RESULTS: Intervals: Rate: 54 FL: 184 QRSD: 110 QT: 474 QTc: 449 [place]: P: 47 FL: 184 QRS: 46 T: 48 INTERPRETIVE STATEMENTS: Sinus bradycardia Otherwise normal ECG No previous ECG available for comparison Electronically Signed On 06-20-22 05:37:44 CDT by Oneil Lyman
[2022-06-20] MEDS: NA CHLORIDE 0.9% 1,000 ML IV SCH (06:45)
--- NOTE | 2022-06-20 07:27 | CON ---
Date of Consultation: 06/20/2022 Reason For Consultation: Syncope. History Of Present Illness: Mr. Strong is a 81-year-old white male. He is fairly healthy. He has had a history of hypertension only for which he takes losartan. He has a history of gastroesophageal reflux disease, hypothyroidism, and has had a stent many years ago, he could not recall when and whe re. 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 He had a sudden episode where ___ and then passed out. No symptoms before or after his syncope. He was not pre or postictal. Denied chest pain. Denied any unexplained nausea, vomiting, diaphoresis, PND, orthopnea, pedal marcellus a, or palpitation. Denied any fever or chills. His EKG showed sinus bradycardia with PACs. Chest x -ray was negative. CT of his head was negative. His TSH was 0.025. Past Medical History: As stated above. Allergies: NONE. Review of Systems: Negative. Social History: Negative. Family History: Noncontributory. Medications: At home include losartan, Protonix, and Synthroid. Physical Examination: General: Very pleasant. No acute distress. Vital Signs: Bradycardic at 48. Afebrile. HEENT: Negative. Neck: Supple with no bruit, lymphadenopathy, JVD, or thyromegaly. Chest: Clear. Cardiac: Revealed bradycardia. No murmurs, gallops, or rubs. Abdomen: Benign. Extremities: Revealed no clubbing, cyanosis, or edema. Diagnostic Data: As stated earlier. Impression And Plan: Syncope, certainly could be secondary to orthostatic hypotension and dehydratio n. could also be secondary to bradycardia. There is an echocardiogram pending, although he just had recent workup by Dr. Ramirez that was unremarkable. I think he should have an event randa farmer done as an outpatient. We should address his thyroid dose. He sees in that regar d. After the echocardiogram, he can go home. I will contact Dr. Ramirez for a followup f or a possible event monitor. If he has pauses or significant bradycardia or symptoms, he may need a pacemaker. ZOE/NIKHIL Voice ID: [id number] Report ID: [id number]
--- NOTE | 2022-06-20 08:29 | RAD REPORT ---
EXAM DESCRIPTION: US - CP - 06/20/2022 5:56 am CLINICAL HISTORY: near syncope Headache, drowsiness, syncope COMPARISON: No comparisons TECHNIQUE: Real-time sonographic evaluation of both carotid systems was performed. Doppler interroga tion was performed with waveform tracing bilaterally. FINDINGS: Normal high resistance waveforms are noted in both external carotid arteries. The common c arotid arteries and internal carotid arteries show normal low resistance waveforms. Mild soft plaque is seen involving the left common carotid artery mid aspect. There is mild soft plaq ue in the left carotid bulb with stenosis less than 50% based on NASCET criteria. Peak systolic and e nd diastolic velocity values and the ICA/CCA ratios are in the non-hemodynamically significant range. Antegrade flow seen in both vertebral arteries. IMPRESSION: Lhra-[id number] soft plaquing seen left mid common carotid artery as well as the left c arotid bulb. No evidence of a hemodynamically significant stenosis.
[2022-06-20] MEDS ORDERED: ENOXAPARIN 40 MG/0.4 ML SQ SCH (09:00)
[2022-06-20 10:26] LABS: Specific Gravity 1.011 (1.005-1.030); Urine Bilirubin NEGATIVE (Negative); Urine Blood Negative (Negative); Urine Clarity Clear (Clear); Urine Color Colorless (Yellow); Urine Glucose NEGATIVE (Negative); Urine Protein NEGATIVE (Negative); Urine RBC <5 /HPF (None Seen); Urine Urobilinogen Normal (Normal)
[2022-06-20 10:39] VITALS: O2SAT 99
--- NOTE | 2022-06-20 10:46 | P.DS ---
Admission Date: 06/19/22 Discharge Date: 06/20/22 Disposition: ROUTINE DISCHARGE Discharge Condition: FAIR Reason for Admission: Near Syncope, Bradycardia - Problems (1) Near syncope Status: Acute (2) Sinus bradycardia Status: Acute (3) Hypertension Status: Chronic Qualifiers: Hypertension type: primary hypertension Qualified Code(s): I10 - Essential (primary) hypertension Brief History of Present Illness: Patient is a 81-year-old male with history of hypertension and hyperlipidemia who presented to the ED via EMS after a near syncopal episode. 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 Upon EMS arrival, he was noted to be diaphoretic and bradycardic. They administered 0.5 of atropine and 1 L of fluid. EKG showed sinus bradycardia with a rate of 45. He states that he takes bisoprolol 6.25 daily but is unsure what his heart rate usually is. He does not think it is typically this low. He sees Dr. Ramirez. His labs and head CT were unremarkable. Patient remained bradycardic. He was placed on observation for further evaluation and management. Hospital Course: Troponin trended negative. Patient was seen and evaluated by cardiology who recommended echocardiogram and outpatient work-up with an event monitor. Patient was still bradycardic so his bisoprolol is discontinued for now. His antihypertensives which include the losartan was continued. Echocardiogram is done and the result is pending. Blood pressure has been stable. Patient is discharged to follow-up with cardiology as an outpatient. Vital Signs/Physical Exam: Temp Pulse Resp BP Pulse Ox 97.3 F 46 L 16 163/71 H 99 06/20/22 08:00 06/20/22 08:00 06/20/22 08:00 06/20/22 08:00 06/20/22 08:00 General: Alert, In no apparent distress, Oriented x3 HEENT: Mucous membr. moist/pink Neck: Supple, JVD not distended, No Thyromegaly Respiratory: Clear to auscultation bilaterally, Normal air movement Cardiovascular: No edema, Regular rate/rhythm, Normal S1 S2 Gastrointestinal: Normal bowel sounds, Soft and benign, Non-distended, No tenderness Musculoskeletal: No swelling Neurological: Normal strength at 5/5 x4 extr Laboratory Data at Discharge: WBC 7.60 K/uL (4.3-10.9) 06/20/22 03:14 Hgb 11.9 g/dL (13.6-17.9) L 06/20/22 03:14 Hct 34.2 % (39.6-49.0) L 06/20/22 03:14 Plt Count 170 K/uL (152-406) 06/20/22 03:14 Sodium 144 mmol/L (136-145) 06/20/22 03:14 Potassium 4.3 mmol/L (3.5-5.1) 06/20/22 03:14 BUN 16 mg/dL (7-18) 06/20/22 03:14 Creatinine 0.68 mg/dL (0.55-1.3) 06/20/22 03:14 Glucose 154 mg/dL (74-106) H 06/20/22 03:14 Phosphorus 3.2 mg/dL (2.5-4.9) 06/20/22 03:14 Magnesium 2.1 mg/dL (1.8-2.4) 06/20/22 03:14 Triglycerides 76 mg/dL (<150) 06/20/22 03:14 Cholesterol 120 mg/dL (<200) 06/20/22 03:14 HDL Cholesterol 42 mg/dL (40-60) 06/20/22 03:14 Cholesterol/HDL Ratio 2.86 06/20/22 03:14 Home Medications: Losartan Potassium 50 mg PO BID 06/19/22 Pantoprazole Sodium [Protonix] 20 mg PO DAILY 06/19/22 Aspirin [Aspirin EC 81 MG] 81 mg PO DAILY #30 tab 06/20/22 New Medications: Aspirin [Aspirin EC 81 MG] 81 mg PO DAILY #30 tab Diet: AHA Activity: Fall precautions Followup: CHIARA RAMIREZ [UNKNOWN] - 1 Week (For arrangement for Event Monitor.) Avinash Blackburn MD [Primary Care Provider] - 1-2 Weeks (Call to schedule appointment)
[2022-06-20 12:21] VITALS: TEMP 97.2
[2022-06-20 13:34] VITALS: BP 148/60
--- NOTE | 2022-06-21 06:52 | ECHO ---
HEIGHT: 5 ft 11 in WEIGHT: 195 lb 0 oz DATE OF STUDY: 06/20/[address]: Pattie Clement 2-DIMENSIONAL: YES M.MODE: YES DOPPLER: YES COLOR FLOW: YES TDS: NO PORTABLE: YES DEFINITY: NO BUBBLE STUDY: NO DIAGNOSIS: NEAR SYNCOPE/ BRADYCARDIA CARDIAC HISTORY: CATHERIZATION: SURGERY: PROSTHETIC VALVE: PACEMAKER: MEASUREMENTS (cm) DIASTOLIC (NORMALS) SYSTOLIC (NORMALS) IVSd 1.0 (0.6-1.2) LA Diam 3.0 (1.9-4.0) LVEF 65% LVIDd 5.0 (3.5-5.7) LVIDs 3.2 (2.0-3.5) %FS 36% LVPWd 0.9 (0.6-1.2) Ao Diam 3.2 (2.0-3.7) 2 DIMENSIONAL ASSESSMENT: RIGHT ATRIUM: NORMAL LEFT ATRIUM: NORMAL RIGHT VENTRICLE: NORMAL LEFT VENTRICLE: NORMAL TRICUSPID VALVE: MILD TRICUSPID REGURGITATION MITRAL VALVE: MILD MITRAL REGURGITATION PULMONIC VALVE: MILD PULMONIC INSUFFICIENCY AORTIC VALVE: NORMAL PERICARDIAL EFFUSION: NONE AORTIC ROOT: NORMAL LEFT VENTRICULAR WALL MOTION: NORMAL. DOPPLER/COLOR FLOW: SEE BELOW. COMMENTS: NORMAL LEFT VENTRICULAR EJECTION FRACTION 60-65%. NORMAL WALL MOTION. MILD (MITRAL REGURGITATION, TRICUSPID REGURGITATION, PULMONIC INSUFFICIENCY). TECHNOLOGIST: RAGHU JEAN
== END 2022-06-20 13:27 | disposition home or self-care (01) ==
LOC: ER 15:03 → ERHOLD 19:19 → 4TH 20:15
PROVIDERS: ADMIT Internal Medicine; ATTEND Internal Medicine
DX: R00.1 Bradycardia, unspecified (principal); I95.1 Orthostatic hypotension; E86.0 Dehydration; I10 Essential (primary) hypertension; E78.5 Hyperlipidemia, unspecified; Z87.891 Personal history of nicotine dependence; Z95.5 Presence of coronary angioplasty implant and graft; Z20.822 Contact with and (suspected) exposure to COVID-19
CPT/HCPCS: 93005; 93306; 85025 ×2; 81001; 80048 ×2; 36415; 83735; 84100; 80061; 82947; 84443; 81003; 83036; 84484; 70450; 71045; 93880; 97116; 97161; 99285; 87811; J1650; J7030 ×2; G0378 ×3